=== PATIENT | female | born 1985 | race Caucasian/White ===

== ENCOUNTER 2019-07-08 14:26 | Emergency (ER) | payer BC ==
[~2019-07-08] VITALS: Ht 165.1 cm; Wt 70.3 kg
[2019-07-08 14:34] VITALS: BP 110/87
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
[2019-07-08] MEDS ORDERED: Acetaminophen 500mg (ES) tab ORAL ONE (14:45)
[2019-07-08] MEDS ORDERED: Tetanus/Diptheria/Pertussis IM ONE (15:15)
--- NOTE | 2019-07-08 15:20 | Diagnostic Imaging Report ---
Clinical Indication:Wrist pain Technique: 3 views of the right wrist Comparison: None Findings: Very questionable linear lucencies are seen in the distal radius there is joint surface and at the radial styloid. No other evidence of fracture. No dislocations. Joint spaces are preserved. Impression: Pelvic completely exclude distal radial fracture. Correlate with clinical findings Findings discussed by phone with Dr. Pineda at the time of interpretation
[2019-07-08] MEDS ORDERED: IBUPROFEN600 MG ORAL (15:27)
[2019-07-08] MEDS ORDERED: ACETAMINOPHEN500 M3 ORAL (15:27)
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
[2019-07-08 15:38] VITALS: BP 110/87
== END 2019-07-08 15:40 | disposition home or self-care (01) ==
LOC: EDBD 14:26 → EMR 15:40
DX: S60.211A Contusion of right wrist, initial encounter (principal); S16.1XXA Strain of muscle, fascia and tendon at neck level, initial encounter; S02.5XXA Fracture of tooth (traumatic), initial encounter for closed fracture; V43.52XA Car driver injured in collision with other type car in traffic accident, initial encounter; Y92.411 Interstate highway as the place of occurrence of the external cause; Z23 Encounter for immunization
CPT/HCPCS: 29125; 72052; 81025; 90471; 90715; 99284